=== PATIENT | male | born 1975 | race Caucasian/White ===

== ENCOUNTER 2017-07-31 14:49 | Emergency (ER) | payer OTHER ==
[2017-07-31 14:58] VITALS: TEMP 97.9; O2SAT 96
[2017-07-31] MEDS ORDERED: CYCLOBENZAPRINE 10 MG TAB PO ONE (15:22)
[2017-07-31] MEDS ORDERED: OXYCODONE/APAP 5/325 TAB PO ONE (15:23)
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
[2017-07-31 17:36] VITALS: BP 115/77; PULSE 89; RESP 20
[2017-07-31] MEDS ORDERED: OXYCODONE/APAP 5/325MG PREPACK#4 BTL TAKEHOME ONE (17:51)
--- NOTE | 2017-07-31 19:24 | ASMTCAGE ---
CAGE Do you feel you ought to Answers: Yes cut down on your drinking or drug use? Do people annoy you by Answers: No criticizing your drinking or drug use? Do you feel guilty about Answers: Yes your drinking or drug use? Do you drink or use drugs Answers: No first thing in the morning ([employer] Assistant)? Date Signed: 07/31/2017 07:23 PM Electronically Signed By:Luz Elena Lee RN
--- NOTE | 2017-07-31 19:29 | ASMTCMCOM ---
CM Note CM Note Notes: Spoke with patient about his alcohol use as he had reported he drinks about 6-7 drinks every night. Patient was very pleasant and appreciative of conversation. He stated he would like to cut down on his drinking as his father and grandfather were both alcoholics. He also talked about how his health would improve if he cut down on his drinking. Patient is new to [place], moved here 3 months ago from [place] for a new job and wanted to move from [place]. Patient's still lives back in [place] but is looking for a job in [place]. Patient was very open to reaching out for substance abuse counseling. Patient's PCP is Dr. Jian Forman. Patient was provided information on [facility] and encouraged to reach out their counseling and substance abuse services. CM available for further assistance. Date Signed: 07/31/2017 07:28 PM Electronically Signed By:Luz Elena Lee RN
== END 2017-07-31 17:36 | disposition home or self-care (01) ==
DX: S22.41XA Multiple fractures of ribs, right side, initial encounter for closed fracture (principal); S70.01XA Contusion of right hip, initial encounter; S20.211A Contusion of right front wall of thorax, initial encounter; V17.0XXA Pedal cycle driver injured in collision with fixed or stationary object in nontraffic accident, initial encounter; Y92.89 Other specified places as the place of occurrence of the external cause; Y99.8 Other external cause status; Y93.55 Activity, bike riding; I10 Essential (primary) hypertension